=== PATIENT | female | born 1940 | race Caucasian/White ===

== ENCOUNTER 2021-11-13 09:26 | Day surgery (SDC) | payer MEDICARE ==
--- NOTE | 2021-11-13 09:45 | ANESTHESIA ---
Pre-Anesthesia VS, & Labs - Diagnosis colon screening - Procedure colonoscopy Height: 5 ft 4 in Weight (kg): 62.3 kg Body Mass Index: 23.6 BMI Classification: Healthy weight - NPO >8 hours - Is Patient ?: No Home Medications and Allergies Home Medications: Ambulatory Orders Acyclovir 400 mg PO DAILY 11/13/21 Alendronate [Fosamax] 70 mg PO Q7D 11/13/21 Ascorbic Acid [Vitamin C] 1,000 mg PO DAILY 11/13/21 Aspirin [Aspirin EC] 81 mg PO DAILY 11/13/21 Atorvastatin [Lipitor] 20 mg PO DAILY 11/13/21 Biotin 3,000 mcg PO DAILY 11/13/21 Calcium Citrate 800 mg PO DAILY 11/13/21 Cholecalciferol (Vitamin D3) [Vitamin D3] 1,250 mcg PO DAILY 11/13/21 Methylsulfonylmethane [MSM] 1,500 mg PO DAILY 11/13/21 Multivitamin/Iron/Folic Acid [Centrum Women Tablet] 1 each PO DAILY 11/13/21 Trospium Chloride 20 mg PO DAILY 11/13/21 glucosamine HCL [Glucosamine HCl] 1,500 mg PO DAILY 11/13/21 Acyclovir 400 DAILY 06/10/14 Aspirin [Aspir 81] 81 mg PO DAILY 06/10/14 Allergies/Adverse Reactions: Allergies Allergy/AdvReac Type Severity Reaction Status Date / Time No Known Drug Allergies Allergy Verified 06/10/14 19:01 Anes History & Medical History - Anesthetic History Anesthesia Complications: reports: No previous complications Family history of Anesthesia Complications: Denies Family history of Malignant Hyperthermia: Denies - Medical History Cardiovascular: reports: None Pulmonary: reports: None Gastrointestinal: reports: None Urinary: reports: None Neuro: reports: None Musculoskeletal: reports: Other (C4, C5 disk herniation) Endocrine/Autoimmune: reports: None Blood Disorders: reports: None (history of blood clot to E s/p LONG TERM in 2014;) Skin: reports: None Smoking Status: Never smoker Psychosocial: reports: No issues indicated History of Cancer?: No - Surgical History General: reports: Appendectomy, Colonoscopy Eyes Ears Nose Throat (EENT): reports: Cataracts Orthopedic: reports: Other Exam General: Alert, Oriented x3, Cooperative, No acute distress Dental: WNL Mouth Openin Fingerbreadth Neck Mobility: Reduced Mallampati classification: II Thyromental Distance: less than 4 cm Respiratory: Lungs clear, Normal breath sounds, No respiratory distress, No accessory muscle use Cardiovascular: Regular rate, Normal S1, Normal S2, No murmurs Mental/Cognitive Status: Alert/Oriented X3, Normal for patient Cognitive Status: Within normal limits Plan Anesthesia Type: General, Total IV Consent for Procedure(s) Verified and Reviewed: Yes Code Status: Attempt Resuscitation ASA classification: 2-Mild systemic disease Is this case an emergency?: No
[2021-11-13] MEDS ORDERED: LIDOCAINE-MPF 2% 5 ML VIAL ONE (09:48)
[2021-11-13] MEDS ORDERED: PROPOFOL 500 MG/50 ML 500 MG/50 ML VIAL ONE (09:48)
[2021-11-13] MEDS ORDERED: LACTATED RINGERS 1,000 ML IV ONE ×2 (09:50→11:15)
[2021-11-13 11:46] VITALS: BP 123/56
--- NOTE | 2021-11-13 13:52 | ANESTHESIA POST OP EVALUATION ---
Anesthesia Post Eval - Post Anesthesia Eval Vitals: Last Vital Signs Temp 36.6 C 11/13/21 11:45 Pulse 69 11/13/21 11:45 Resp 16 11/13/21 11:45 BP 123/56 L 11/13/21 11:45 Pulse Ox 99 11/13/21 11:45 CV Function Including HR & BP: Stable Pain Control: Satisfactory Nausea & Vomiting: Negative Mental Status: Baseline Respiratory Status: Airway Patent Hydration Status: Satisfactory Anesthesia Complications: None
== END 2021-11-13 09:27 | disposition home or self-care (01) ==
LOC: SDS 09:26
PROVIDERS: ATTEND Surgery
DX: Z12.11 Encounter for screening for malignant neoplasm of colon (principal)
CPT/HCPCS: G0121; J7120

== ENCOUNTER 2022-10-27 10:51 | Outpatient (CLI) | payer MEDICARE ==
[2022-10-27 17:49] LABS: BASOPHILS % (AUTO) 0.2 %; EOSINOPHILS # (AUTO) 0.1 10^3/uL (0.0-0.7); EOSINOPHILS % (AUTO) 2.3 %; HCT - HEMATOCRIT 43.5 % (37.0-47.0); HGB - HEMOGLOBIN 13.9 g/dL (12.0-16.0); LYMPHOCYTES # (AUTO) 0.7 10^3/uL (1.5-3.5); MEAN PLATELET VOLUME 10.6 fL (7.9-10.8); MONOCYTES # (AUTO) 0.4 10^3/uL (0.0-1.0); MONOCYTES % (AUTO) 6.6 %; NEUTROPHILS # (AUTO) 4.5 10^3/uL (1.5-6.6); NEUTROPHILS % (AUTO) 78.7 %; PLT - PLATELET COUNT 209 10^3/uL (130-450); RED BLOOD COUNT 4.63 10^6/uL (4.20-5.40); RED CELL DISTRIBUTION WIDTH 12.9 % (12.0-15.0); WHITE BLOOD COUNT 5.8 x10^3/uL (4.8-10.8)
[2022-10-27 18:10] LABS: ALBUMIN 4.2 g/dL (3.2-5.5); ALBUMIN/GLOBULIN RATIO 1.4 (1.0-2.2); ALKALINE PHOSPHATASE 59 IU/L (42-121); ALT ALANINE AMINOTRANSFERASE 37 IU/L (10-60); AST ASPARTATE AMINOTRANSFERASE 32 IU/L (10-42); BILIRUBIN,TOTAL 0.8 mg/dL (0.2-1.0); BUN - BLOOD UREA NITROGEN 22 mg/dL (6-20); CALCIUM 9.2 mg/dL (8.5-10.3); CARBON DIOXIDE - CO2 28 mmol/L (21-32); CHLORIDE 106 mmol/L (101-111); CHOL/HDL RATIO 2.7 (<4.4); CHOLESTEROL 151 mg/dL; CREATININE 1.1 mg/dL (0.4-1.0); GFR - MDRD 48 (>89); GLUCOSE 98 mg/dL (70-100); HDL CHOLESTEROL 56 mg/dL; LDL CHOLESTEROL,CALCULATED 78 mg/dL; LDL/HDL RATIO 1.4 (<4.4); POTASSIUM 4.6 mmol/L (3.5-5.0); SODIUM 139 mmol/L (135-145); TOTAL PROTEIN 7.2 g/dL (6.7-8.2); TRIGLYCERIDES 86 mg/dL; VLDL CHOLESTEROL 17 mg/dL
== END 2022-10-27 10:52 | disposition home or self-care (01) ==
LOC: LAB.N 10:51
PROVIDERS: ATTEND Physician Assistant
DX: N18.31 Chronic kidney disease, stage 3a (principal); E78.5 Hyperlipidemia, unspecified; Z79.899 Other long term (current) drug therapy
CPT/HCPCS: 36415; 80053; 80061; 83721; 85025

== ENCOUNTER 2023-06-08 10:41 | Outpatient (CLI) | payer MEDICARE ==
--- NOTE | 2023-06-08 16:30 | CT Report ---
PROCEDURE: Maxillofacial WO INDICATIONS: SINUSITIS, LESION OF HARD PALATE TECHNIQUE: Noncontrast 1.5 mm thick axial images acquired from the mandible through the frontal sinuses, with co james and sagittal reformatting. For radiation dose reduction, the following was used: automated ex posure control, adjustment of mA and/or kV according to patient size. COMPARISON: None. FINDINGS: Image quality: Excellent. Bones and teeth: Osseous lesion of the hard palate, most consistent with a torus palatinus. Orbital pederson are intact. Sinus pederson show no fracture or deformity. Nasal bones and septum are intact. Vi sualized portions of the mandible demonstrate no fractures or subluxation. Zygomatic arches are inta ct. Pterygoid plates are intact. Visualized portions of the skull base and auditory canals are inta ct. Sinuses: Moderate mucosal thickening of the bilateral inferior maxillary sinuses. Right maxillary sin us mucous retention cyst. Mild mucosal thickening of the ethmoid air cells.. Opacification of the lef t ostomy no complex. Right ostiomeatal complex is patent but narrowed by Venkatesh cell. Bilateral Amanda r cells are noted. Mild rightward deviation of the nasal septum. No juhi bullosa. Mastoid air cell s are aerated. Soft tissues: No edema, masses, or fluid collections. No enlarged lymph nodes. No soft tissue lace rations or debris. Vascular: Visualized vascular structures appear normal in the absence of contrast. Bony vascular fo ramina and canals are intact. IMPRESSION: 1.Mild to moderate sinusitis, most notable within the maxillary sinuses. 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 Reviewed by: Roberto Carlos Calhoun MD on 06/08/2023 4:29 PM PST Approved by: Roberto Carlos Calhoun MD on 06/08/2023 4:29 PM PST Station ID: [id number]
== END 2023-06-08 10:42 | disposition home or self-care (01) ==
LOC: DI 10:41
PROVIDERS: ATTEND Physician Assistant
DX: J32.0 Chronic maxillary sinusitis (principal); K13.79 Other lesions of oral mucosa

== ENCOUNTER 2023-10-06 21:38 | Emergency (ER) | payer MEDICARE ==
[2023-10-06] MEDS ORDERED: oxyCODONE/ACET 5/325 Prepack 4 PO STA (22:32)
--- NOTE | 2023-10-06 22:43 | XRAY Report ---
PROCEDURE: Elbow 3+V LT INDICATIONS: Trauma TECHNIQUE: 3 views of the elbow were acquired. COMPARISON: None. FINDINGS: Bones: Displaced fracture of the proximal ulna with intra-articular extension at the semilunar notch . Olecranon fracture fragment is proximally displaced by 1.2 cm. Generalized osteopenia. Soft tissues: Small effusion. No suspicious soft tissue calcifications or masses. IMPRESSION: Displaced intra-articular fracture of the olecranon. Reviewed by: Manohar Ayala MD on 10/06/2023 10:42 PM PDT Approved by: Manohar Ayala MD on 10/06/2023 10:42 PM PDT Station ID: [id number]
[2023-10-06] MEDS ORDERED: BACITRACIN ZINC OINT 1 PACKET TOP STA (23:06)
--- NOTE | 2023-10-06 23:08 | ED Physician Documentation ---
History of Present Illness - Stated complaint Stated Complaint: LT ELBOW PX - Chief complaint Chief Complaint: Trauma Ext - History obtained from History obtained from: Patient - Additonal information Additional information: 83-year-old woman presents status post fall onto outstretched hands left elbow with notable swelling and pain.Also with small abrasions to bilateral wrists. denies HT or other injury. R hand dominant PD PAST MEDICAL HISTORY - Past Medical History Past Medical History: Yes Cardiovascular: None Respiratory: None Neuro: None Endocrine/Autoimmune: None GI: None : None HEENT: None Psych: None Musculoskeletal: Other Derm: None - Past Surgical History Past Surgical History: Yes General: Appendectomy, Colonoscopy Ortho: Other HEENT: Cataracts - Present Medications Home Medications: Ambulatory Orders Medication Instructions Recorded Confirmed Acyclovir 400 mg PO DAILY 11/13/21 11/13/21 Alendronate [Fosamax] 70 mg PO Q7D 11/13/21 11/13/21 Ascorbic Acid [Vitamin C] 1,000 mg PO DAILY 11/13/21 11/13/21 Aspirin [Aspirin EC] 81 mg PO DAILY 11/13/21 11/13/21 Atorvastatin [Lipitor] 20 mg PO DAILY 11/13/21 11/13/21 Biotin 3,000 mcg PO DAILY 11/13/21 11/13/21 Calcium Citrate 800 mg PO DAILY 11/13/21 11/13/21 Cholecalciferol (Vitamin D3) 1,250 mcg PO DAILY 11/13/21 11/13/21 [Vitamin D3] Methylsulfonylmethane [MSM] 1,500 mg PO DAILY 11/13/21 11/13/21 Multivitamin/Iron/Folic Acid 1 each PO DAILY 11/13/21 11/13/21 [Centrum Women Tablet] Trospium Chloride 20 mg PO DAILY 11/13/21 11/13/21 glucosamine HCL [Glucosamine HCl] 1,500 mg PO DAILY 11/13/21 11/13/21 Oxycodone HCl/Acetaminophen 1 each PO Q4H PRN #8 tablet 10/06/23 [Percocet 5-325 mg Tablet] - Allergies Allergies/Adverse Reactions: Allergies Allergy/AdvReac Type Severity Reaction Status Date / Time No Known Drug Allergies Allergy Verified 06/10/14 19:01 - Social History Does the pt smoke?: No Smoking Status: Never smoker Does the pt drink ETOH?: Yes Does the pt have substance abuse?: No - Immunizations Immunizations are current?: Yes - POLST Patient has POLST: No PD ED PE NORMAL - Vitals Vital signs reviewed: Yes - General General: Alert and oriented X 3, No acute distress, Well developed/nourished - HEENT HEENT: Atraumatic, PERRL, EOMI - Neck Neck: No bony TTP - Derm Derm: Normal color, Warm and dry, Other (small abrasions to BL wrists. ecchymosis and swelling visible to L lateral elbow) - Extremities Extremities: Other (L elbow tender with rom, with visible swelling and ecchymosis. 2+ BL radial pulses. normal sensation BL UE. ) Results - Vitals Vitals: Vital Signs - 24 hr 10/06/23 21:42 Temperature 36.8 C Heart Rate 73 Respiratory 16 Rate O2 Saturation 98 Oxygen O2 Source Room air PD Medical Decision Making - ED course ED course: 83-year-old woman presents with left olecranon fracture as well as bilateral superficial wrist abrasions. Abrasions were cleaned and treated with bacitracin. Olecranon fracture was placed in a posterior long-arm splint at 90 degrees. Patient will require surgery. Orthopedics referral provided. Orthopedics available in house. Return precautions given. Departure - Departure Disposition: 01 Home, Self Care Clinical Impression: Olecranon fracture Condition: Stable Instructions: Fx Elbow ORIF About Follow-Up: Kuldip Pete MD [Provider Admit Priv/Credential] - Prescriptions: Oxycodone HCl/Acetaminophen [Percocet 5-325 mg Tablet] 1 each PO Q4H PRN #8 tablet PRN Reason: Pain >8 Comments: You were seen in the emergency department for elbow fracture (olecranon process of ulna). This will likely require surgery to repair. Pain meds sent to [facility]. Do not use when driving or operating heavy machinery. Dispose of any unused pills at your local police station. This medication may cause constipation. If you are prone to constipation then please take with [id number] sennadocusate and MiraLAX. Please follow-up with orthopedics and return to the emergency department if you have any new or worsening symptoms or other concerns.
[2023-10-06 23:30] VITALS: BP 138/78; O2SAT 95
== END 2023-10-06 23:30 | disposition home or self-care (01) ==
LOC: ED 21:38
DX: S60.812A Abrasion of left wrist, initial encounter (principal); S60.811A Abrasion of right wrist, initial encounter; S52.032A Displaced fracture of olecranon process with intraarticular extension of left ulna, initial encounter for closed fracture; W18.30XA Fall on same level, unspecified, initial encounter
CPT/HCPCS: 29105; 99284

== ENCOUNTER 2023-10-10 12:02 | Observation (INO) | payer MEDICARE ==
[2023-10-10] MEDS: LACTATED RINGERS 1,000 ML IV ONE (12:30)
[2023-10-10] MEDS ORDERED: ceFAZolin 2 GM VIAL ONE (12:34)
[2023-10-10 12:47] LABS: BASOPHILS % (AUTO) 0.3 %; EOSINOPHILS # (AUTO) 0.2 10^3/uL (0.0-0.7); EOSINOPHILS % (AUTO) 3.3 %; HCT - HEMATOCRIT 39.8 % (37.0-47.0); HGB - HEMOGLOBIN 12.5 g/dL (12.0-16.0); LYMPHOCYTES # (AUTO) 1.9 10^3/uL (1.5-3.5); LYMPHOCYTES % (AUTO) 26.9 %; MEAN CORPUSCULAR HEMOGLOBIN 29.7 pg (27.0-31.0); MEAN CORPUSCULAR HGB CONC 31.4 g/dL (32.0-36.0); MEAN CORPUSCULAR VOLUME 94.5 fL (81.0-99.0); MEAN PLATELET VOLUME 10.2 fL (7.9-10.8); MONOCYTES # (AUTO) 0.4 10^3/uL (0.0-1.0); MONOCYTES % (AUTO) 6.4 %; NEUTROPHILS # (AUTO) 4.3 10^3/uL (1.5-6.6); PLT - PLATELET COUNT 204 10^3/uL (130-450); RED BLOOD COUNT 4.21 10^6/uL (4.20-5.40); RED CELL DISTRIBUTION WIDTH 12.4 % (12.0-15.0); WHITE BLOOD COUNT 6.9 x10^3/uL (4.8-10.8)
[2023-10-10] MEDS ORDERED: MIDAZOLAM 2 MG/2 ML VIAL ONE (14:46)
[2023-10-10] MEDS ORDERED: fentaNYL 100 MCG/2 ML VIAL ONE ×2 (14:46→16:53)
[2023-10-10] MEDS ORDERED: PROPOFOL 200 MG/20 ML VIAL IVP ONE (14:47)
[2023-10-10] MEDS ORDERED: LIDOCAINE-MPF 2% 5 ML VIAL ONE (15:07)
[2023-10-10] MEDS ORDERED: ATROPINE ABBOJECT 1 MG/10 ML SYRINGE IVP PRN (15:10)
[2023-10-10] MEDS ORDERED: HYDROmorphone 0.5 MG/0.5 ML SYRINGE IVP PRN (15:10)
[2023-10-10] MEDS ORDERED: ePHEDrine 50 MG/ML VIAL IVP PRN (15:10)
[2023-10-10] MEDS ORDERED: MORPHINE 2 MG/ML CARPUJECT IVP PRN (15:10)
[2023-10-10] MEDS ORDERED: fentaNYL 100 MCG/2 ML VIAL IVP PRN (15:10)
[2023-10-10] MEDS ORDERED: ONDANSETRON 4 MG/2 ML VIAL IVP PRN (15:10)
[2023-10-10] MEDS ORDERED: NALOXONE 0.4 MG/ML VIAL IVP PRN (15:10)
--- NOTE | 2023-10-10 15:10 | ANESTHESIA ---
Pre-Anesthesia VS, & Labs - Diagnosis Left Olecranon Fracture - Procedure Pinning Vital Signs: Temp Pulse Resp BP Pulse Ox O2 Flow Rate 36.3 C L 69 14 103/65 97 10/10/23 12:30 10/10/23 12:30 10/10/23 12:30 10/10/23 12:30 10/10/23 12:30 Height: 5 ft 4 in Weight (kg): 63.9 kg Body Mass Index: 24.1 BMI Classification: Normal - Is Patient ?: No - Lab Results Current Lab Results: Laboratory Tests 10/10/23 12:40: WBC 6.9, RBC 4.21, Hgb 12.5, Hct 39.8, MCV 94.5, MCH 29.7, MCHC 31.4 L, RDW 12.4, Plt Count 204, MPV 10.2, Neut # (Auto) 4.3, Lymph # (Auto) 1.9, [place] # (Auto) 0.4, Eos # (Auto) 0.2, Baso # (Auto) 0.0, Absolute Nucleated RBC 0.00, Nucleated RBC % 0.0 Fish Bones: 10/10/23 12:40 Home Medications and Allergies Acyclovir 400 mg PO DAILY 11/13/21 Alendronate [Fosamax] 70 mg PO Q7D 11/13/21 Ascorbic Acid [Vitamin C] 1,000 mg PO DAILY 11/13/21 Aspirin [Aspirin EC] 81 mg PO DAILY 11/13/21 Atorvastatin [Lipitor] 20 mg PO DAILY 11/13/21 Biotin 3,000 mcg PO DAILY 11/13/21 Calcium Citrate 800 mg PO DAILY 11/13/21 Cholecalciferol (Vitamin D3) [Vitamin D3] 1,250 mcg PO DAILY 11/13/21 Methylsulfonylmethane [MSM] 1,500 mg PO DAILY 11/13/21 Multivitamin/Iron/Folic Acid [Centrum Women Tablet] 1 each PO DAILY 11/13/21 Trospium Chloride 20 mg PO DAILY 11/13/21 glucosamine HCL [Glucosamine HCl] 1,500 mg PO DAILY 11/13/21 Allergies/Adverse Reactions: Allergies Allergy/AdvReac Type Severity Reaction Status Date / Time No Known Drug Allergies Allergy Verified 10/10/23 12:53 Anes History & Medical History - Medical History Cardiovascular: reports: High cholesterol Pulmonary: reports: None Gastrointestinal: reports: None Urinary: reports: Incontinence Neuro: reports: None Musculoskeletal: reports: Osteopenia Endocrine/Autoimmune: reports: None Blood Disorders: reports: None Skin: reports: None Smoking Status: Never smoker - Surgical History General: reports: Appendectomy Eyes Ears Nose Throat (EENT): reports: Cataracts Orthopedic: reports: Other Plan Anesthesia Type: General, MAC, Other Block Consent for Procedure(s) Verified and Reviewed: Yes Code Status: Attempt Resuscitation ASA classification: 2-Mild systemic disease Is this case an emergency?: No
[2023-10-10] MEDS ORDERED: DEXAMETHASONE 4 MG/ML VIAL ONE (15:12)
[2023-10-10] MEDS ORDERED: ONDANSETRON 4 MG/2 ML VIAL ONE (15:12)
[2023-10-10] MEDS ORDERED: PHENYLEPHRINE HCL 0.5 MG/5 ML AMPULE ONE (15:37)
[2023-10-10] MEDS ORDERED: ePHEDrine 50 MG/ML VIAL IVP ONE (15:44)
[2023-10-10] MEDS ORDERED: ESMOLOL 100 MG/10 ML VIAL IVP ONE (15:48)
[2023-10-10] MEDS ORDERED: LACTATED RINGERS 1,000 ML IV SCH (16:00)
[2023-10-10] MEDS ORDERED: VASOPRESSIN 20 UNIT/ML VIAL ONE (16:10)
[2023-10-10] MEDS: LACTATED RINGERS 300 ML IV ONE (17:45)
[2023-10-10] MEDS ORDERED: oxyCODONE 5 MG TABLET PO PRN (18:24)
[2023-10-10] MEDS ORDERED: DOCUSATE SODIUM 100 MG CAPSULE PO PRN (18:24)
--- NOTE | 2023-10-10 18:38 | OPERATIVE REPORT ---
Operative Report - General Procedure Date: 10/10/23 Planned Procedure: ORIF of left olecranon fracture, using tension band wire technique Pre-Op Diagnosis: Distracted left olecranon fracture Procedure Performed: ORIF of left olecranon fracture, using tension band wire technique Post Op Diagnosis: Same - Procedure Note Primary Surgeon: Jeovanny Mcgraw MD Anesthesia Technique: General LMA, Regional block Estimated Blood Loss (mL): 50 Complications: During induction, patient had a brief episode of hypotension and cardiac arythmia. Stabilized with adrenalin. No further episodes throughout the rest of surgery. - Other Other Information/Narrative: Description of procedure: Patient was taken the operating room on the day of her admission. Initially a peripheral nerve block was performed in PACU. She was then taken to the operating room where she underwent general anesthetic. We then prepped and draped the arm free in the usual fashion for elbow surgery after an arm pneumatic tourniquet had been placed. Should be noted that during the induction she did have a period of hypotension and cardiac rate arrhythmia which was brief and did stabilize with adrenaline. Was stable throughout the rest the procedure. Through a curvilinear skin incision centered about the tip of the olecranon we dissected down to the fracture. At that time she was noted to have evidence of osteopenic bone. We could reduce the fracture fairly easily from external observation. We used a curette to remove some of the fracture hematoma to allow for better reduction. Because the osteopenic bone that was difficult holding the fracture in place with towel clip reduction clamps. With some tentative fixation and reduction of her fracture we obtain fluoroscopic views. It showed a marked improvement in the position of our olecranon fracture though there was still some incongruity of the articulating surface at the fracture site. Remanipulation was done and attempt to improve our reduction. The osteopenic nature of bone however made this more more difficult and we were fearful that the further manipulation might result in more fragmentation of her fracture. Obtaining the best reduction we could obtain we held this again in place with our towel clip reduction clamp. We then proceeded to insert to longitudinal K wires (0.06 2 inch diameter) pinning of the olecranon fracture in place. C arm fluoroscopic view again showed the reduction that changed and satisfactory placement of our longitudinal K wires. We then used a 2 mm drill to put a transverse drill hole in the proximal ulna distal to the fracture site. This is where we passed the number 18-gauge stainless steel wire. We then did a [id number] loop with the stainless steel wire around our longitudinal K wires. Using a large needle fernandes clamp we then clamped the ends of the stainless steel wire and with traction on the wire we twisted to obtain improved compression of the fracture. We were then able to easily flex and extend the elbow passively. Fluoroscopic views and AP and lateral projection again showed satisfactory placement hardware and the reduction of the fracture to be unchanged. At this point we then irrigated the wound out thoroughly with saline. The tourniquet time was now at 90 minutes and tourniquet was released. There was no significant bleeding that occurred after the tourniquet had been released. We then closed the wound using buried simple stitches of 3-0 Vicryl to approximate the subcutaneous tissues. Skin anson used to approximate the skin edge. Wound was then dressed with Xeroform gauze 4 x 4 sterile Webril and a long-arm posterior splint applied to the arm after the tourniquet was relmoved. Estimated blood loss 50 mL Replacement: 1200 mL of crystalloid Tourniquet time: 90 minutes Intraoperative complications: As noted earlier in this note. Plan: Patient will be admitted to the floor for observation status. Have consulted Dr. Right gutierrez of the hospitalist service to help us help manage the patient overnight. She will go in the telemetry to observe for any further postoperative episodes of hypotension or cardiac arrhythmia. If she does well overnight the plan will be to discharge her home.
[2023-10-10] MEDS: NS W/20 MEQ KCL 1,000 ML IV SCH (19:30)
[2023-10-10] MEDS: ACETAMINOPHEN 500 MG TABLET PO SCH (19:30)
[2023-10-10] MEDS: SODIUM CHLORIDE FLUSH 0.9% 10 ML SYRINGE IVP PRN (19:33)
--- NOTE | 2023-10-10 19:36 | HISTORY & PHYSICAL EXAMINATION ---
Chief Complaint - Chief Complaint Chief Complaint: arrhythmia in OR History of Present Illness - Admitted From Admitted From:: OR via home - History Obtained From Records Reviewed: Brandon and Cathryn History obtained from: Dr. Mcgraw and IRINA Exam Limitations: none - History of Present Illness HPI Comment/Other: This is a 83-year-old white female who is followed at our local [facility]. Her past medical history is that of osteopenia, genital HSV, history of DVT, urinary incontinence, and stage III chronic kidney disease. in reviewing her clinic records, she is regarded as fairly healthy. On November 04 she had a fall. She went to the ER and x-ray showed displaced fracture of the proximal ulna with intra-articular extension at the semilunar notch. She has some generalized osteopenia. She was put in a splint An orthopedic outpatient referral was requested. After that consultation she was brought to the OR today And had open reduction internal fixation of the olecranon. During surgery, she had a reaction to anesthesia where she dropped her blood pressure, and required epinephrine. After dosing with epinephrine which brought up her blood pressure, she then went into rapid A-fib. The atrial fibrillation then resulted on its own. The case was completed without any more events. The patient told the orthopedic surgery, in recovery, that she does have a history of palpitations in the past. But never needed any workup and never had any symptoms other than palpitations. To me she denies any history of congestive heart failure or PA. She has no history of edema, orthopnea, cough, or change in cardiovascular endurance. She has no history of thyroid disease. The patient is a same-day surgery patient. But because of the events in the OR we felt that it was prudent for her to be placed in observation. Will monitor her via telemetry overnight. I will check troponins. History - Past Medical History Cardiovascular: reports: High cholesterol Respiratory: reports: None Neuro: reports: None Endocrine/Autoimmune: reports: None GI: reports: None : reports: Incontinence HEENT: reports: None Psych: reports: None Musculoskeletal: reports: Osteopenia Derm: reports: None MRSA Hx?: No - Past Surgical History General: reports: Appendectomy Ortho: reports: Other ( R ankle fx w ORIF 2014) /[employer]: reports: Other (breast biopsy) HEENT: reports: Cataracts - Family & Social History Family History Comment/Other: Mother had a history of stroke, lung cancer/smoker, hypertension, osteoarthritis. Dad had a history of brain tumor. 1 brother has alcoholism. 1 brother has a history of lung cancer and smokes Living arrangement: At home Living Situation: With spouse/s.o. Social History Notes: she is a former smoker. Never used vaping or chew tobacco. She has never had a problem with alcohol abuse. No history of recreational substance abuse. - POLST Patient has POLST: No Meds/Allgy - Home Medications Home Medications: Ambulatory Orders Medication Instructions Recorded Confirmed Acyclovir 400 mg PO DAILY 11/13/21 10/10/23 Alendronate [Fosamax] 70 mg PO Q7D 11/13/21 10/10/23 Ascorbic Acid [Vitamin C] 1,000 mg PO DAILY 11/13/21 10/10/23 Aspirin [Aspirin EC] 81 mg PO DAILY 11/13/21 10/10/23 Atorvastatin [Lipitor] 20 mg PO DAILY 11/13/21 10/10/23 Biotin 3,000 mcg PO DAILY 11/13/21 10/10/23 Calcium Citrate 800 mg PO DAILY 11/13/21 10/10/23 Cholecalciferol (Vitamin D3) 1,250 mcg PO DAILY 11/13/21 10/10/23 [Vitamin D3] Methylsulfonylmethane [MSM] 1,500 mg PO DAILY 11/13/21 10/10/23 Multivitamin/Iron/Folic Acid 1 each PO DAILY 11/13/21 10/10/23 [Centrum Women Tablet] Trospium Chloride 20 mg PO DAILY 11/13/21 10/10/23 glucosamine HCL [Glucosamine HCl] 1,500 mg PO DAILY 11/13/21 10/10/23 Oxycodone HCl/Acetaminophen 1 each PO Q4H PRN #8 tablet 10/06/23 10/10/23 [Percocet 5-325 mg Tablet] - Allergies Allergies/Adverse Reactions: Allergies Allergy/AdvReac Type Severity Reaction Status Date / Time No Known Drug Allergies Allergy Verified 10/10/23 12:53 Review of Systems - Constitutional Constitutional: denies: Fatigue, Fever, Chills, Malaise, Weight gain, Weight loss - Eyes Eyes: denies: Amaurosis, Blurred vision, Spots in vision - Ears, Nose & Throat Ears, Nose & Throat: denies: Ear pain, Hearing loss, Hearing aids, Postnasal drainage, Dentures, Sore throat - Cardiovascular Cariovascular: reports: Irregular heart rate, Palpitations. denies: Chest pain, Edema, Exertional dyspnea, Decr. exercise tolerance - Respiratory Respiratory: denies: Cough, Sputum production, Wheezing, Snoring, SOB at rest, SOB with exertion - Gastrointestinal Gastrointestinal: reports: Other ( Colonoscopy is up-to-date in 2021). denies: Abdominal pain, Abdominal distention, Constipation, Diarrhea, Nausea, Vomiting - Genitourinary Genitourinary: reports: Incontinence. denies: Dysuria, Frequency, Nocturia, Urethral discharge - Musculoskeletal Musculoskeletal: reports: Joint pain. denies: Muscle pain, Back pain, Muscle aches - Integumentary Integumentary: denies: Rash, Pruritis, Lesions - Neurological Neurological: denies: General weakness, Focal weakness, Headache, Memory problems, Pre-existing deficit - Psychiatric Psychiatric: denies: Depression, Anxiety, Suicidal, Delusions - Endocrine Endocrine: denies: Polyuria, Polydypsia, Polyphagia - Hematologic/Lymphatic Hematologic/Lymphatic: denies: Anemia, Bruising, Petechiae, Blood clots Prior Level of Functionality: completely independent with activities of daily living Exam - Vital Signs Reviewed Vital Signs: Yes Vital Signs: Vital Signs x48h Temp Pulse Pulse Resp BP BP Pulse Ox 10/10/23 18:54 36.5 C 87 16 121/64 93 10/10/23 18:24 36.8 C 89 17 125/64 92 10/10/23 18:20 36.2 C L 92 20 127/65 100 10/10/23 18:15 36.2 C L 96 16 107/93 H 100 10/10/23 18:10 36.2 C L 98 14 127/59 L 100 10/10/23 18:00 36.2 C L 90 14 129/61 100 10/10/23 17:55 36.3 C L 91 16 120/60 100 10/10/23 17:50 36.3 C L 90 16 126/62 100 10/10/23 17:43 36.3 C L 95 19 132/60 H 100 10/10/23 12:30 36.3 C L 69 14 103/65 97 - Physical Exam General Appearance: positive: No acute distress, Alert Conclusion/Plan - Problem List (1) Intraoperative complication Conclusion/Plan: my suspicion is this patient had a reaction to the anesthesia. Which caused severe hypotension and possible atrial fibrillation because of it. But at the same time she gives a history of possible palpitations in the past. she may have intermittent atrial fibrillation and it just has not been called yet. Plan: placed in observation status Troponins EKG telemetry overnight if this short workup is negative, I would think that she be safe to discharge tomorrow morning. She should she be seen by her primary care provider in follow-up. Qualifiers: Surgical complication system/body Area: circulatory system Surgical complication type: other cardiac functional disturbance (2) Olecranon fracture Conclusion/Plan: The fracture was 3 days ago. She is now postop day #1 for the surgery. Surgery would like to see her in 2 weeks and follow-up in the office. She is in a splint. She just needs to keep the weight wound clean and dry. She was given 10 oxycodone tablets when she first had the fracture and only had to use 1. So orthopedics feels that she will need Tylenol and Motrin in the outpatient setting when we discharge her tomorrow. (3) History of DVT (deep vein thrombosis) Conclusion/Plan: 40 mg subcu Lovenox tonight. And Lovenox tomorrow in prophylactic dose - Lab Results Lab results reviewed: Yes Fish Bones: 10/10/23 12:40 - EKG Results EKG Interpreted Independently: Yes Core Measures - Anticipated LOS I expect patient to be DC'd or transferred within 96 hours.: Yes - DVT/VTE - Prophylaxis VTE/DVT Prophylaxis med ordered at admit?: Yes
[2023-10-10] MEDS: ENOXAPARIN 40 MG/0.4 ML SYRINGE SUBQ STA (19:49)
[2023-10-10 19:56] LABS: BASOPHILS % (AUTO) 0.1 %; EOSINOPHILS % (AUTO) 0.1 %; HGB - HEMOGLOBIN 12.1 g/dL (12.0-16.0); LYMPHOCYTES # (AUTO) 0.6 10^3/uL (1.5-3.5); LYMPHOCYTES % (AUTO) 8.6 %; MEAN CORPUSCULAR HEMOGLOBIN 30.3 pg (27.0-31.0); MEAN CORPUSCULAR HGB CONC 31.8 g/dL (32.0-36.0); MEAN CORPUSCULAR VOLUME 95.2 fL (81.0-99.0); MONOCYTES # (AUTO) 0.1 10^3/uL (0.0-1.0); MONOCYTES % (AUTO) 1.1 %; NEUTROPHILS # (AUTO) 6.6 10^3/uL (1.5-6.6); NEUTROPHILS % (AUTO) 89.8 %; PLT - PLATELET COUNT 177 10^3/uL (130-450); RED BLOOD COUNT 3.99 10^6/uL (4.20-5.40); RED CELL DISTRIBUTION WIDTH 12.1 % (12.0-15.0); WHITE BLOOD COUNT 7.3 x10^3/uL (4.8-10.8)
[2023-10-10 20:18] LABS: ALBUMIN 3.6 g/dL (3.2-5.5); ALBUMIN/GLOBULIN RATIO 2.4 (1.0-2.2); BILIRUBIN,TOTAL 0.6 mg/dL (0.2-1.0); CALCIUM 8.5 mg/dL (8.5-10.3); POTASSIUM 3.8 mmol/L (3.5-4.5); TOTAL PROTEIN 5.1 g/dL (6.4-8.9)
--- NOTE | 2023-10-10 20:47 | ANESTHESIA POST OP EVALUATION ---
Anesthesia Post Eval - Post Anesthesia Eval Vitals: Last Vital Signs Temp 36.6 C 10/10/23 19:54 Pulse 92 10/10/23 19:54 Resp 20 10/10/23 19:54 BP 130/64 10/10/23 19:54 Pulse Ox 95 10/10/23 19:54 O2 Flow Rate CV Function Including HR & BP: Stable Pain Control: Satisfactory Nausea & Vomiting: Negative Mental Status: Baseline Respiratory Status: Airway Patent Hydration Status: Satisfactory Anesthesia Complications: Other (Pt had and unexpected and exaggerated hypotensive response to induction of GA with LMA; it was treated with several doses of ephedrine; her blood pressure improved, but had an irregular rhythm looking like a flutter in the 130s) - Other Details/Therapies Other Details/Therapies: as the surgery progressed, she was also treated with doses of phenylephrine, vasopressin, and esmolol. by the end of the case, her vitals were stable, appeared to be in NSR, extubated easily. 12 lead was done in PACU which showed NSR, it was recommended to Dr Mcgraw that she be observed overnight and the hospitalist consulted
[2023-10-10] MEDS ORDERED: ceFAZolin (2G) 2 GM in SODIUM CHLORIDE 0.9% MINIBAG 100 ML IV SCH (21:00)
[2023-10-10] MEDS: ASPIRIN EC 81 MG TABLET PO SCH (21:54)
[2023-10-10] MEDS: CELECOXIB 100 MG CAPSULE PO SCH (21:55)
[2023-10-10] MEDS: ceFAZolin (2G) 2 GM in SODIUM CHLORIDE 0.9% MINIBAG 100 ML IV SCH (23:55)
[2023-10-11] MEDS: SODIUM CHLORIDE FLUSH 0.9% 10 ML SYRINGE IVP SCH (01:21)
[2023-10-11] MEDS: ENOXAPARIN 40 MG/0.4 ML SYRINGE SUBQ SCH (08:58)
--- NOTE | 2023-10-11 10:35 | PROVIDER PROGRESS NOTE ---
Subjective - Prog Note Date Prog Note Date: 10/11/23 Prog Note Time: 10:33 - Subjective Pt reports feeling: Improved Objective - Vital Signs/Intake & Output Vital Signs: Vital Signs x48h Temp Pulse Resp BP Pulse Ox 10/11/23 07:36 36.7 C 76 16 103/64 97 10/11/23 04:15 36.8 C 72 16 105/53 L 95 Intake & Output: Intake & Output 10/08/23 10/09/23 10/10/23 10/11/23 23:59 23:59 23:59 23:59 Intake Total 627.50 1902.5 Output Total 50 Balance 577.50 1902.5 - Lab Results Fish Bones: 10/10/23 19:51 10/10/23 19:51 Other Labs: Lab Results x24hrs 10/10/23 10/10/23 10/10/23 Range/Units 19:51 19:51 19:51 WBC 7.3 (4.8-10.8) x10^3/uL RBC 3.99 L (4.20-5.40) 10^6/uL Hgb 12.1 (12.0-16.0) g/dL Hct 38.0 (37.0-47.0) % MCV 95.2 (81.0-99.0) fL MCH 30.3 (27.0-31.0) pg MCHC 31.8 L (32.0-36.0) g/dL RDW 12.1 (12.0-15.0) % Plt Count 177 (130-450) 10^3/uL MPV 10.0 (7.9-10.8) fL Neut # (Auto) 6.6 (1.5-6.6) 10^3/uL Lymph # (Auto) 0.6 L (1.5-3.5) 10^3/uL [place] # (Auto) 0.1 (0.0-1.0) 10^3/uL Eos # (Auto) 0.0 (0.0-0.7) 10^3/uL Baso # (Auto) 0.0 (0.0-0.1) 10^3/uL Absolute Nucleated RBC 0.00 x10^3/uL Nucleated RBC % 0.0 /100WBC Sodium 140 (135-145) mmol/L Potassium 3.8 (3.5-4.5) mmol/L Chloride 106 (101-111) mmol/L Carbon Dioxide 28 (21-32) mmol/L Anion Gap 6.0 (6-13) BUN 22 H (6-20) mg/dL Creatinine 1.0 (0.6-1.3) mg/dL Estimated GFR (MDRD) 53 L (>89) Glucose 144 H (74-104) mg/dL Calcium 8.5 (8.5-10.3) mg/dL Total Bilirubin 0.6 (0.2-1.0) mg/dL AST 18 (10-42) IU/L ALT 19 (10-60) IU/L Alkaline Phosphatase 50 (42-121) IU/L Troponin I High Sens 3.7 (2.3-14.8) ng/L Total Protein 5.1 L (6.4-8.9) g/dL Albumin 3.6 (3.2-5.5) g/dL Globulin 1.5 L (2.1-4.2) g/dL Albumin/Globulin Ratio 2.4 H (1.0-2.2) 10/10/23 Range/Units 12:40 WBC 6.9 (4.8-10.8) x10^3/uL RBC 4.21 (4.20-5.40) 10^6/uL Hgb 12.5 (12.0-16.0) g/dL Hct 39.8 (37.0-47.0) % MCV 94.5 (81.0-99.0) fL MCH 29.7 (27.0-31.0) pg MCHC 31.4 L (32.0-36.0) g/dL RDW 12.4 (12.0-15.0) % Plt Count 204 (130-450) 10^3/uL MPV 10.2 (7.9-10.8) fL Neut # (Auto) 4.3 (1.5-6.6) 10^3/uL Lymph # (Auto) 1.9 (1.5-3.5) 10^3/uL [place] # (Auto) 0.4 (0.0-1.0) 10^3/uL Eos # (Auto) 0.2 (0.0-0.7) 10^3/uL Baso # (Auto) 0.0 (0.0-0.1) 10^3/uL Absolute Nucleated RBC 0.00 x10^3/uL Nucleated RBC % 0.0 /100WBC Sodium (135-145) mmol/L Potassium (3.5-4.5) mmol/L Chloride (101-111) mmol/L Carbon Dioxide (21-32) mmol/L Anion Gap (6-13) BUN (6-20) mg/dL Creatinine (0.6-1.3) mg/dL Estimated GFR (MDRD) (>89) Glucose (74-104) mg/dL Calcium (8.5-10.3) mg/dL Total Bilirubin (0.2-1.0) mg/dL AST (10-42) IU/L ALT (10-60) IU/L Alkaline Phosphatase (42-121) IU/L Troponin I High Sens (2.3-14.8) ng/L Total Protein (6.4-8.9) g/dL Albumin (3.2-5.5) g/dL Globulin (2.1-4.2) g/dL Albumin/Globulin Ratio (1.0-2.2) - Other Results/Comments Other Results/Comments: Examination: Patient is comfortable in the long-arm posterior splint that was placed postoperatively. She moves her fingers or thumb well. Sensation intact throughout the exposed digits. Assessment/Plan - Problem List (1) Olecranon fracture Impression: Status post tension band wiring for a left olecranon fracture-stable in current splint Plan: Patient will continue to stay in her long-arm posterior splint. Sling as needed. Pain medication as needed. Should follow-up in the orthopedic clinic in about 2 weeks time for a wound check skin staple removal and use of the x- rays. Will ultimately plan on her being immobilized splint or cast for about 4 to 6 weeks before working on early range of motion to her elbow. Will keep her immobilized little bit longer than normal in view of her osteoporotic bone.
--- NOTE | 2023-10-11 11:54 | PHARMACY PROGRESS NOTE ---
- Best Possible Medication History Admit Date and Time: 10/10/23 1826 Processed by: Nursing Medications reviewed in ED?: Yes Medication History completed: Yes Patient Interview: Completed Secondary Source(s): Insurance records As the person ultimately responsible for medication therapy, providers are able to order a medication from an existing home medication list in [facility] via the "Reconcile Routine" prior to Confirmation of that medication by windows server support technician. Such practice is discouraged except when the physician, in their clinical judgment, deems that a medical need exists for a medication without regard to previous use.
[2023-10-11 13:36] VITALS: BP 115/49; O2SAT 98
--- NOTE | 2023-10-11 14:56 | PROVIDER PROGRESS NOTE ---
Subjective - Prog Note Date Prog Note Date: 10/11/23 Prog Note Time: 14:54 - Subjective Pt reports feeling: Improved Subjective: She denies palpitations, and is having improved feeling and movement in the L hand/fingers. Current Medications - Current Medications Current Medications: Patient History Medication Instructions Recorded Confirmed Acyclovir 400 mg PO DAILY 11/13/21 10/10/23 Alendronate [Fosamax] 70 mg PO Q7D 11/13/21 10/10/23 Ascorbic Acid [Vitamin C] 1,000 mg PO DAILY 11/13/21 10/10/23 Aspirin [Aspirin EC] 81 mg PO DAILY 11/13/21 10/10/23 Atorvastatin [Lipitor] 20 mg PO DAILY 11/13/21 10/10/23 Biotin 3,000 mcg PO DAILY 11/13/21 10/10/23 Calcium Citrate 800 mg PO DAILY 11/13/21 10/10/23 Cholecalciferol (Vitamin D3) 1,250 mcg PO DAILY 11/13/21 10/10/23 [Vitamin D3] Methylsulfonylmethane [MSM] 1,500 mg PO DAILY 11/13/21 10/10/23 Multivitamin/Iron/Folic Acid 1 each PO DAILY 11/13/21 10/10/23 [Centrum Women Tablet] Trospium Chloride 20 mg PO DAILY 11/13/21 10/10/23 glucosamine HCL [Glucosamine HCl] 1,500 mg PO DAILY 11/13/21 10/10/23 Objective - Vital Signs/Intake & Output Reviewed Vital Signs: Yes Vital Signs: Vital Signs x48h Temp Pulse Resp BP Pulse Ox 10/11/23 13:27 37.1 C 63 16 115/49 L 98 10/11/23 07:36 36.7 C 76 16 103/64 97 Intake & Output: Intake & Output 10/08/23 10/09/23 10/10/23 10/11/23 23:59 23:59 23:59 23:59 Intake Total 627.50 2142.5 Output Total 50 Balance 577.50 2142.5 - Objective General Appearance: positive: No acute distress Eyes Bilateral: positive: Normal inspection ENT: positive: ENT inspection nml Neck: positive: Nml inspection Respiratory: positive: No respiratory distress, Breath sounds nml Cardiovascular: positive: Regular rate & rhythm, No murmur, No gallop Extremities: positive: Other (Left upper extremity in splint, hand visualizedFingers moving freely, sensation intact) - Lab Results Fish Bones: 10/10/23 19:51 10/10/23 19:51 Other Labs: Lab Results x24hrs 10/10/23 10/10/23 10/10/23 Range/Units 19:51 19:51 19:51 WBC 7.3 (4.8-10.8) x10^3/uL RBC 3.99 L (4.20-5.40) 10^6/uL Hgb 12.1 (12.0-16.0) g/dL Hct 38.0 (37.0-47.0) % MCV 95.2 (81.0-99.0) fL MCH 30.3 (27.0-31.0) pg MCHC 31.8 L (32.0-36.0) g/dL RDW 12.1 (12.0-15.0) % Plt Count 177 (130-450) 10^3/uL MPV 10.0 (7.9-10.8) fL Neut # (Auto) 6.6 (1.5-6.6) 10^3/uL Lymph # (Auto) 0.6 L (1.5-3.5) 10^3/uL [place] # (Auto) 0.1 (0.0-1.0) 10^3/uL Eos # (Auto) 0.0 (0.0-0.7) 10^3/uL Baso # (Auto) 0.0 (0.0-0.1) 10^3/uL Absolute Nucleated RBC 0.00 x10^3/uL Nucleated RBC % 0.0 /100WBC Sodium 140 (135-145) mmol/L Potassium 3.8 (3.5-4.5) mmol/L Chloride 106 (101-111) mmol/L Carbon Dioxide 28 (21-32) mmol/L Anion Gap 6.0 (6-13) BUN 22 H (6-20) mg/dL Creatinine 1.0 (0.6-1.3) mg/dL Estimated GFR (MDRD) 53 L (>89) Glucose 144 H (74-104) mg/dL Calcium 8.5 (8.5-10.3) mg/dL Total Bilirubin 0.6 (0.2-1.0) mg/dL AST 18 (10-42) IU/L ALT 19 (10-60) IU/L Alkaline Phosphatase 50 (42-121) IU/L Troponin I High Sens 3.7 (2.3-14.8) ng/L Total Protein 5.1 L (6.4-8.9) g/dL Albumin 3.6 (3.2-5.5) g/dL Globulin 1.5 L (2.1-4.2) g/dL Albumin/Globulin Ratio 2.4 H (1.0-2.2) Assessment/Plan - Problem List (1) Atrial fibrillation with rapid ventricular response Impression: A-fib resolved Patient is in sinus rhythm Patient is rate controlled since last evening in sinus rhythm Patient denies any chest pain or palpitations Patient reports Intermittent historyOf palpitations with symptoms relating to stress or anxiety but episodes lasting only seconds. She denies any other known history of arrhythmia. We discussed the underlying etiology of atrial fibrillation at length, as well as the management strategy including rate control and stroke risk reduction with anticoagulation. Given that she is currently in sinus rhythm and has no other documented history of atrial fibrillation, I encouraged her to follow-up closely with her PCP and consider cardiology referral for outpatient heart rate monitoring such as a Zio patch. Shared decision making was engaged and ultimately we decided against anticoagulation at this time pending further recommendations after cardiology workup. (2) Intraoperative complication Impression: See above, patient is in sinus rhythm and complication is resolved Qualifiers: Surgical complication system/body Area: circulatory system Surgical complication type: other cardiac functional disturbance
--- NOTE | 2023-10-11 20:38 | XRAY Report ---
PROCEDURE: OR C-Arm Procedure INDICATIONS: ORIF LEFT OLECRAMON FLUORO TIME: 0.3 MIN TECHNIQUE: 4 intraoperative fluoroscopic images of left elbow were obtained. COMPARISON: Elbow radiograph dated 10/10/2023. FINDINGS: Intraoperative fluoroscopic images shows internal fixation of proximal olecranon with anatomic elbow alignment. Total fluoroscopy time is 0.3 minute. IMPRESSION: Fluoroscopy guidance was provided intraoperatively for internal fixation of proximal olecranon. Reviewed by: Deon Mosquera MD on 10/11/2023 8:36 PM PDT Approved by: Deon Mosquera MD on 10/11/2023 8:36 PM PDT Station ID: [id number]
--- NOTE | 2023-10-16 17:32 | Discharge Plan ---
Discharge Plan Problem Reviewed?: Yes Disposition: Home, Self Care Condition: Good Diet: Regular No Smoking: If you smoke, Please STOP! Call for help.
--- NOTE | 2023-10-16 17:35 | DISCHARGE SUMMARY ---
Discharge Summary Admit Date: 10/10/23 Discharge Date: 10/11/23 Discharging Provider: Dr Mcgraw Code Status: Attempt Resuscitation Condition at Discharge: Good Discharge Disposition: 01 Home, Self Care - DIAGNOSES Admission Diagnoses: Afib Discharge Diagnoses with Status of Each Condition: Afib - resolved - HPI History of Present Illness: Patient's was admitted as a same-day Surgery converted to observation after she had an episode of A-fib RVR with a elective outpatient left elbow surgery. The A-fib was short-lived, and she converted to sinus rhythm.She was kept in house for observation. - HOSPITAL COURSE Hospital Course: Patient is an 83-year-old female who was admitted to the hospital shortly after having surgery on the left elbow. In the postoperative period she had an episode of atrial fibrillation with rapid ventricular response. This resolved quickly and she was placed in observation overnight to ensure maintenance of sinus rhythm. Overnight she had no further episodes of A-fib and into the morning on the day of discharge she was in sinus rhythm and rate controlled and asymptomatic. An in-depth conversation was had with the patient regarding atr ial fibrillation. An echocardiogram was obtained but results not available at the time of discharge. She was advised to follow-up with her PCP to discuss the results of the echocardiogram, but at this time it was not recommended to start anticoagulation based on the paroxysmal nature of the events. - ALLERGIES Allergies/Adverse Reactions: Allergies Allergy/AdvReac Type Severity Reaction Status Date / Time No Known Drug Allergies Allergy Verified 10/10/23 12:53 - MEDICATIONS Home Medications: Ambulatory Orders Medication Instructions Recorded Confirmed Acyclovir 400 mg PO DAILY 11/13/21 10/10/23 Alendronate [Fosamax] 70 mg PO Q7D 11/13/21 10/10/23 Ascorbic Acid [Vitamin C] 1,000 mg PO DAILY 11/13/21 10/10/23 Aspirin [Aspirin EC] 81 mg PO DAILY 11/13/21 10/10/23 Atorvastatin [Lipitor] 20 mg PO DAILY 11/13/21 10/10/23 Biotin 3,000 mcg PO DAILY 11/13/21 10/10/23 Calcium Citrate 800 mg PO DAILY 11/13/21 10/10/23 Cholecalciferol (Vitamin D3) 1,250 mcg PO DAILY 11/13/21 10/10/23 [Vitamin D3] Methylsulfonylmethane [MSM] 1,500 mg PO DAILY 11/13/21 10/10/23 Multivitamin/Iron/Folic Acid 1 each PO DAILY 11/13/21 10/10/23 [Centrum Women Tablet] Trospium Chloride 20 mg PO DAILY 11/13/21 10/10/23 glucosamine HCL [Glucosamine HCl] 1,500 mg PO DAILY 11/13/21 10/10/23 Oxycodone HCl/Acetaminophen 1 each PO Q4H PRN #8 tablet 10/06/23 10/10/23 [Percocet 5-325 mg Tablet] - PHYSICAL EXAM AT DISCHARGE General Appearance: positive: No acute distress Eyes Bilateral: positive: Normal inspection Cardiovascular: positive: Regular rate & rhythm, No murmur, No gallop - LABS Result Diagrams: 10/10/23 19:51 10/10/23 19:51
== END 2023-10-11 14:40 | disposition home or self-care (01) ==
LOC: SDS 12:02 → MS2 18:22 → SDS 18:25 → MS2 18:26
PROVIDERS: ADMIT Orthopaedic Surgery; ATTEND Orthopaedic Surgery
DX: S52.032A Displaced fracture of olecranon process with intraarticular extension of left ulna, initial encounter for closed fracture (principal); W19.XXXA Unspecified fall, initial encounter; I48.91 Unspecified atrial fibrillation; T88.59XA Other complications of anesthesia, initial encounter; I95.2 Hypotension due to drugs; T41.205A Adverse effect of unspecified general anesthetics, initial encounter; Y92.234 Operating room of hospital as the place of occurrence of the external cause; E78.00 Pure hypercholesterolemia, unspecified; N18.31 Chronic kidney disease, stage 3a; M85.832 Other specified disorders of bone density and structure, left forearm; I27.20 Pulmonary hypertension, unspecified; I35.1 Nonrheumatic aortic (valve) insufficiency; Z79.82 Long term (current) use of aspirin; Z79.899 Other long term (current) drug therapy; Z80.1 Family history of malignant neoplasm of trachea, bronchus and lung; Z80.8 Family history of malignant neoplasm of other organs or systems; Z81.1 Family history of alcohol abuse and dependence; Z82.3 Family history of stroke; Z82.49 Family history of ischemic heart disease and other diseases of the circulatory system; Z82.61 Family history of arthritis; Z86.19 Personal history of other infectious and parasitic diseases; Z86.718 Personal history of other venous thrombosis and embolism; Z87.891 Personal history of nicotine dependence; Z90.49 Acquired absence of other specified parts of digestive tract
CPT/HCPCS: 24685; 36415; 80053; 84484; 85025; 93005; 93307; 96361; 96365; 96372; 96376; A9270; C1713; G0378; J1650; J2372; J7120

== ENCOUNTER 2023-11-01 14:25 | Outpatient (CLI) | payer MEDICARE ==
--- NOTE | 2023-11-01 17:39 | XRAY Report ---
PROCEDURE: Elbow 3+V LT INDICATIONS: DISPLACED FX OF OLECRANON PROCESS TECHNIQUE: 3 views of the elbow were acquired. COMPARISON: 10/06/2023 and 10/10/2023. FINDINGS: Bones: There is interval fixation of previously noted proximal olecranon fracture with surgical hard vuong in place. Elbow alignment is anatomic. No gross hardware loosening or failure. No new fracture o r dislocation. No suspicious bony lesions. Soft tissues: No effusion. No suspicious soft tissue calcifications or masses. IMPRESSION: Interval fixation of previously noted proximal olecranon fracture with anatomic elbow alignment. No g ross hardware loosening or failure. No new fracture or dislocation. No significant joint effusion. Reviewed by: Deon George MD on 11/01/2023 5:37 PM PDT Approved by: Deon George MD on 11/01/2023 5:37 PM PDT Station ID: [id number]
== END 2023-11-01 14:26 | disposition home or self-care (01) ==
LOC: DI 14:25
PROVIDERS: ATTEND Orthopaedic Surgery
DX: S52.032D Displaced fracture of olecranon process with intraarticular extension of left ulna, subsequent encounter for closed fracture with routine healing (principal)

== ENCOUNTER 2023-12-14 15:26 | Outpatient (CLI) | payer MEDICARE ==
--- NOTE | 2023-12-15 20:54 | XRAY Report ---
PROCEDURE: Elbow 3+V LT INDICATIONS: DISP FX OF OLECRAN PRO W INTARTIC EXTN LEFT ULNA TECHNIQUE: 3 views of the elbow were acquired. COMPARISON: Left elbow radiographs 11/01/2023, 10/06/2023. FINDINGS: Bones: Prior fracture of the olecranon. K wire pinning x2. Cerclage wire. No hardware fracture. Minim al distraction appears increased compared to 11/01/2023. Alternatively, this could be due to osteolysis of healing. No dislocations. No suspicious bony lesions. Soft tissues: Trace effusion. No suspicious soft tissue calcifications or masses. IMPRESSION: Prior ORIF at the olecranon fracture. Hardware is intact. Minimal distraction appears increased compared to 11/01/2023. Alternatively, this could be due to osteo lysis of healing or differences in positioning. Reviewed by: Socrates Cadet MD on 12/15/2023 8:53 PM PDT Approved by: Socrates Cadet MD on 12/15/2023 8:53 PM PDT Station ID: [id number]
== END 2023-12-14 15:27 | disposition home or self-care (01) ==
LOC: DI 15:26
PROVIDERS: ATTEND Orthopaedic Surgery
DX: S52.032D Displaced fracture of olecranon process with intraarticular extension of left ulna, subsequent encounter for closed fracture with routine healing (principal)

== ENCOUNTER 2024-01-12 11:58 | Outpatient (CLI) | payer MEDICARE ==
--- NOTE | 2024-01-12 15:54 | XRAY Report ---
PROCEDURE: Elbow 3+V LT INDICATIONS: LEFT ULNA FX TECHNIQUE: 3 views of the elbow were acquired. COMPARISON: 12/14/2023, 11/01/2023 FINDINGS: Bones: Cerclage wire and K wires fixing a nonunited olecranon fracture. Fracture plane is still well seen. Ulnohumeral joint appears within normal alignment. Radiocapitellar alignment is normal. No per iostitis or visible bridging callus. Soft tissues: No effusion. Dystrophic calcifications are seen medial to the fracture in soft tissue s. No suspicious soft tissue calcifications or masses. IMPRESSION: Persistent nonhealing olecranon fracture with stable fixation hardware. Reviewed by: Cristal Duggan MD on 01/12/2024 3:53 PM PDT Approved by: Cristal Duggan MD on 01/12/2024 3:53 PM PDT Station ID: [id number]
== END 2024-01-12 11:59 | disposition home or self-care (01) ==
LOC: DI 11:58
PROVIDERS: ATTEND Orthopaedic Surgery
DX: S52.022K Displaced fracture of olecranon process without intraarticular extension of left ulna, subsequent encounter for closed fracture with nonunion (principal)